=== PATIENT | male | born 1955 | race Caucasian/White ===

== ENCOUNTER 2020-06-28 19:23 | Inpatient (IN) | payer MEDICARE, OTHER ==
[~2020-06-28] VITALS: Ht 182.9 cm; Wt 72.5 kg
[2020-06-28 20:46] LABS: Basophils # (auto) 0 10 ^3/uL (0-0.2); Basophils % (auto) 0.4 % (0.0-2.0); Eosinophils # (auto) 0 10 ^3/uL (0-0.8); Eosinophils % (auto) 0.6 % (0.0-7.0); Hematocrit 47.4 % (41.0-53.0); Hemoglobin 16.4 g/dL (13.5-17.5); Lymphocytes # (auto) 1.4 10 ^3/uL (0.4-5.4); Lymphocytes % (auto) 18.1 % (10.0-50.0); Mean Corpuscular Hemoglobin 32.3 pg (28.0-32.0); Mean Corpuscular Hgb Conc. 34.5 g/dL (32.0-36.0); Mean Corpuscular Volume 93.7 fL (80.0-100.0); Monocytes # (auto) 0.9 10 ^3/uL (0-1.3); Monocytes % (auto) 11.6 % (0.0-12.0); Neutrophils # (auto) 5.5 10 ^3/uL (1.6-8.6); Neutrophils % (auto) 69.3 % (37.0-80.0); Platelet Count (auto) 197 10^3/uL (140-450); Red Blood Cells 5.06 10^6/uL (4.5-5.90); Red Cell Distribution Width 13.2 % (11.8-14.3)
[2020-06-28 21:07] LABS: INR 0.99 (0.9-1.15); Partial Thromboplastin Time 25.8 sec (23.0-31.2)
[2020-06-28 21:08] LABS: Calcium 9.4 mg/dL (8.5-10.1); Potassium 4.1 mmol/L (3.5-5.1)
[2020-06-28 21:16] LABS: Albumin 3.9 g/dL (3.4-5.0); BUN/Creatinine Ratio 15.1; Bilirubin, Total 0.7 mg/dL (0.2-1.0); Magnesium 2.9 mg/dL (1.6-2.6); Total Protein 7.9 g/dL (6.4-8.2)
[2020-06-28 22:44] LABS: Urine Bacteria NONE SEEN /hpf (None Seen); Urine Blood Negative /uL (Negative); Urine Specific Gravity 1.015 (1.001-1.035); Urine WBC 1 /hpf (0 - 3)
[2020-06-29] MEDS ORDERED: ONDANSETRON HCL 4 MG/2 ML VIAL IV PRN (03:00)
[2020-06-29] MEDS ORDERED: ENOXAPARIN SOD 100 MG/1 ML SYRINGE SC ONE (03:00)
[2020-06-29] MEDS ORDERED: MORPHINE SULF INJ 2 MG/ML SYRINGE 1ML IV PRN (03:00)
[2020-06-29] MEDS ORDERED: NITROGLYCERIN 0.4 MG SL TAB SL PRN (03:00)
[2020-06-29] MEDS ORDERED: ACETAMINOPHEN 325 MG TAB PO PRN (03:00)
[2020-06-29] MEDS ORDERED: cloNIDine HCL 0.1 MG TAB PO PRN (03:00)
[2020-06-29] MEDS ORDERED: ATORVASTATIN 20 MG TAB PO ONE (03:00)
--- NOTE | 2020-06-29 03:40 | NUR ---
ER CALLED CARDIO CONSULT WITH DR. CLAIRE.
--- NOTE | 2020-06-29 04:30 | NUR ---
Telemetry admit from ER MARTY HE admitted to Telemetry unit. Patient oriented to Harman Yi, primary RN, unit, room, bed, and unit policies regarding patient care and visiting hours. Patient now on continuous telemetry monitoring, tele box #[id number] and telemetry reading on arrival to unit is SR 60. Patient weighed by bedscale and encouraged to call if they need something. All questions and concerns addressed, patient verbalized understanding.
[2020-06-29 04:45] VITALS: BP 138/78
[2020-06-29 05:10] VITALS: BP 138/78
[2020-06-29] MEDS ORDERED: ACYC-161 PO (05:13)
--- NOTE | 2020-06-29 07:35 | NUR ---
Opening Shift Note Assumed care of patient, awake and alert. Respirations even and non labored. Bed is in the lowest/locked position with side rails up x 2 and call light within reach. No S/S of distress/SOB or pain. Instructed on POC and to call for assist PRN, will continue to monitor for changes Q1hr and PRN.
--- NOTE | 2020-06-29 08:05 | NUR ---
[place] Valenzuela at bedside Instructed patient on POC and answered all questions.
[2020-06-29] MEDS ORDERED: ADENOSINE 61 MG in GIVE UN-DILUTED 0 ML IV STA (08:20)
--- NOTE | 2020-06-29 08:27 | NUR ---
IV insertion IV access obtained, via clean sterile technique by inserting 20 gauge catheter at left forearm after 1 attempt. IV secured properly. No trauma to site. Patient tolerated well.
[2020-06-29 08:38] LABS: Amphetamine Screen, Urine NEGATIVE (NEGATIVE); Barbiturate Scree,Urine NEGATIVE (NEGATIVE); Benzodiazephine Screen, Urine NEGATIVE (NEGATIVE); Cannabinoid Screen, Urine NEGATIVE (NEGATIVE); Cocaine Screen, Urine NEGATIVE (NEGATIVE); Opiate Scree,Urine NEGATIVE (NEGATIVE); Phencyclidine Screen, Urine NEGATIVE (NEGATIVE)
[2020-06-29 09:00] VITALS: BP 130/76
[2020-06-29 09:19] VITALS: BP 134/80
[2020-06-29] MEDS ORDERED: FAMOTIDINE 20 MG TAB PO SCH (10:00)
[2020-06-29] MEDS ORDERED: ASPirin 81 mg TAB PO SCH (10:00)
[2020-06-29 10:28] LABS: Cholesterol 182 mg/dL (< 200); HDL Cholesterol 51 mg/dL (40-59); LDL Cholesterol 114 mg/dL (< 100); Triglycerides 79 mg/dL (< 150)
--- NOTE | 2020-06-29 11:51 | NUR ---
DR. LEWIS AT BEDSIDE PATIENT INSTRUCTED ON POC. DR NOTIFIED PT OF HAVING A NON-STEMI. PATIENT STATED "I AM ONLY STAYING 23 HRS AND 59 MINUTES FROM WHEN I GOT HERE OR [facility] CAN [facility] DR EDUCATED PATIENT ON THE CONSEQUENCES OF LEAVING BEFORE TEST RESULT AND PROPER DISCHARGE, INCLUDING THE RISK OF . PATIENT STATED THAT HE WILL TAKE HIS CHANCES AND THAT HE HAS AN APPOINTMENT [facility]. CONTINUED TO EDUCATE PATIENT ON AMA RISK. PATIENT INSISTS ON LEAVING AMA.
--- NOTE | 2020-06-29 11:55 | NUR ---
PATIENT DECIDED TO NOT LEAVE AMA OF NOW. HE STATED THAT HE'LL SEE WHAT RESULTS COME IN BUT THAT HE WON'T STAY LONGER THAN 24 HOURS FROM WHEN HE ARRIVED HERE. WILL CONTINUE TO EDUCATE.
[2020-06-29 13:00] VITALS: BP 121/77
--- NOTE | 2020-06-29 15:50 | NUR ---
AMA Note MARTY HE states they want to leave the hospital Against Medical Advice (AMA). Patient encouraged to stay for further treatment/stabilization. Hamlet Linares MD notified of patient's wishes previously and verbally notified [place] Valenzuela. Patient advised of the risks of leaving AMA. Patient verbalized understanding and voluntarily signed the AMA form. Patient encouraged to return to the ER if symptoms do not improve or worsen.
[2020-06-29] MEDS ORDERED: ATORVASTATIN 20 MG TAB PO SCH (22:00)
[2020-06-30] MEDS ORDERED: ENOXAPARIN SOD 40 MG/0.4 ML SYRINGE SC SCH (10:00)
== END 2020-06-29 15:50 | disposition left against medical advice (07) | DRG 282 ==
LOC: ER 19:23 → TELE 19:24 → TELE-WESTW 06-29 04:30
PROVIDERS: ADMIT Nurse Practitioner; ATTEND Family Medicine
DX: I21.4 Non-ST elevation (NSTEMI) myocardial infarction (principal); R00.0 Tachycardia, unspecified; F12.929 Cannabis use, unspecified with intoxication, unspecified; I10 Essential (primary) hypertension; Z82.49 Family history of ischemic heart disease and other diseases of the circulatory system; Z72.89 Other problems related to lifestyle; Z79.899 Other long term (current) drug therapy
CPT/HCPCS: 36415; 71045; 78452; 80053; 80061; 80307; 81001; 83735; 83880; 84443; 84484; 85025; 85379; 85610; 85730; 93005; 93017; 93306; 99291; G0378; J0153